=== PATIENT | female | born 1990 | race Caucasian/White ===

== ENCOUNTER 2018-10-26 14:52 | Emergency (ER) | payer BC ==
[2018-10-26 09:29] VITALS: BMI 33.3
--- NOTE | 2018-10-26 15:48 | OBDCSUM ---
Datetime: 10/26/2018 15:42 Discharged to, Provider: Home Follow up at, Provider: Dr Zafar Disch Instr Activity: Normal activity Disch Instr Diet: Regular Discharge Time: 10/26/2018 15:43 Follow up in weeks, Provider: MondayOctober 29 as schedule Disch Referrals: None Disch Activity Restrictions: No exercising Discharge Diagnosis Prov Other: gas pain
[2018-10-26 21:25] VITALS: BP 134/72; PULSE 105; RESP 16; TEMP 98.3; O2SAT 97
--- NOTE | 2018-10-27 09:57 | OBHP ---
Datetime: 10/26/2018 15:28 IP Adm Impression: Term, intrauterine ; No Active Labor; Intact Membranes IP Chief Complaint Other: gas pain/ passed gas and felt better IP Admit Plan: Observation/Evaluation Admit Comment, IP Provider: 28yo IUP at 38w had back/apd pain earlier today. She passed gas and fetl better. No CTX; no VB; +FM PNC: Dr Hansen chart rev'd - GBS neg PMH: denies PSH: denies NKA PSoH denies smoking ETOH drugs A: IUP at 38w gas pain not in labor PLAN: will discuss with PMD General - PN: Normal Presentation-Admit: Vertex FHR - Baseline A Provider: 130 Membranes, Provider: Intact Contraction Comments Provider: occv Pool Provider: Negative IP Hx Assessment: The History has been Reviewed and is Current EGA AdmitDate IP: 38.4 IP Chief Complaint: Other NICHD Variability Prov Fetus A: Moderate 6-25bpm NICHD Accel Fetus A IP Provider: [id number] FHR Category Provider Fetus A: Category I NICHD Decel Fetus A IP Provider: None Dilatation, Provider: 2 Effacement, Provider: long Station, Provider: high
== END 2018-10-26 15:55 | disposition home or self-care (01) ==
LOC: H.EROB2 14:52
DX: O26.93 Pregnancy related conditions, unspecified, third trimester (principal); R10.2 Pelvic and perineal pain; R14.3 Flatulence; Z3A.38 38 weeks gestation of pregnancy